=== PATIENT | male | born 1985 | race Caucasian/White ===

== ENCOUNTER 2016-04-01 14:58 | Outpatient (RCR) | payer MEDICAID ==
[~2016-04-01 14:58] MED LIST: /CLON1TA OR
== END 2016-04-05 | disposition home or self-care (01) ==
LOC: M OUTALCOH 14:58
PROVIDERS: ATTEND Psychiatry & Neurology Psychiatry
DX: F10.20 Alcohol dependence, uncomplicated (principal); F12.20 Cannabis dependence, uncomplicated; F11.20 Opioid dependence, uncomplicated; F17.200 Nicotine dependence, unspecified, uncomplicated

== ENCOUNTER 2016-04-29 14:00 | Outpatient (RCR) | payer MEDICAID | END 2016-05-03 | LOC: M OUTALCOH 14:00 | PROVIDERS: ATTEND Psychiatry & Neurology Psychiatry | DX: F12.20 Cannabis dependence, uncomplicated (principal); F11.20 Opioid dependence, uncomplicated; F10.20 Alcohol dependence, uncomplicated; F17.200 Nicotine dependence, unspecified, uncomplicated ==

== ENCOUNTER 2016-06-02 16:00 | Outpatient (RCR) | payer MEDICAID | END 2016-06-03 | LOC: M OUTALCOH 16:00 | PROVIDERS: ATTEND Psychiatry & Neurology Psychiatry | DX: F12.20 Cannabis dependence, uncomplicated (principal); F11.20 Opioid dependence, uncomplicated; F10.20 Alcohol dependence, uncomplicated; F17.200 Nicotine dependence, unspecified, uncomplicated ==

== ENCOUNTER 2016-06-23 13:00 | Outpatient (RCR) | payer MEDICAID | END 2016-07-03 | LOC: M OUTALCOH 13:00 | PROVIDERS: ATTEND Psychiatry & Neurology Psychiatry | DX: F10.20 Alcohol dependence, uncomplicated (principal); F12.20 Cannabis dependence, uncomplicated; F11.20 Opioid dependence, uncomplicated; F17.210 Nicotine dependence, cigarettes, uncomplicated ==

== ENCOUNTER 2018-08-25 12:17 | Emergency (ER) | payer MEDICAID, OTHER ==
[~2018-08-25] VITALS: Ht 180.3 cm; Wt 63.8 kg
[~2018-08-25 12:17] MED LIST changes: -/CLON1TA OR; +CLON-412 OR
[2018-08-25] MEDS ORDERED: EMLA CREAM 5GM (LIDOCAINE/PRILOCAINE) TOP ONE (13:30)
[2018-08-25 14:01] VITALS: BP 143/90
== END 2018-08-25 14:03 | disposition home or self-care (01) ==
LOC: M ED 12:17
DX: S01.01XA Laceration without foreign body of scalp, initial encounter (principal); W22.8XXA Striking against or struck by other objects, initial encounter; Y92.830 Public park as the place of occurrence of the external cause

== ENCOUNTER 2018-09-08 15:17 | Emergency (ER) | payer OTHER ==
[~2018-09-08] VITALS: Ht 180.3 cm; Wt 65.9 kg
[2018-09-08 15:18] VITALS: BP 145/87
== END 2018-09-08 15:54 | disposition home or self-care (01) ==
LOC: M ED 15:51
DX: Z48.02 Encounter for removal of sutures (principal); Z88.0 Allergy status to penicillin

== ENCOUNTER 2018-12-11 04:33 | Emergency (ER) | payer OTHER, SELFPAY ==
[~2018-12-11] VITALS: Ht 180.3 cm; Wt 65.9 kg
--- NOTE | 2018-12-11 05:52 | REPVR ---
PROCEDURE INFORMATION: Exam: CT Head Without Contrast Exam date and time: 12/11/2018 5:18 AM Clinical history: 33 years old, male; Injury or trauma; Fall; Initial encounter; Concussion / head injury and laceration; Without residual foreign body; Scalp; Injury details: Posterior; Additional info: Tr TECHNIQUE: Imaging protocol: Computed tomography of the head without contrast. Radiation optimization: All CT scans at this facility use at least one of these dose optimization techniques: automated exposure control; mA and/or kV adjustment per patient size (includes targeted exams where dose is matched to clinical indication); or iterative reconstruction. COMPARISON: No relevant prior studies available. FINDINGS: Brain: Normal. No hemorrhage. Unremarkable white matter. No mass effect. Ventricles: Normal. No ventriculomegaly. Bones/joints: Unremarkable. No acute fracture. Sinuses: Visualized sinuses are unremarkable. No fluid levels. Mastoid air cells: Visualized mastoid air cells are well aerated. Soft tissues: Unremarkable. IMPRESSION: No acute intracranial abnormality. Electronically signed by: Nam Mccoy On 12/11/2018 05:51:50 AM
[2018-12-11 06:00] VITALS: BP 142/74
== END 2018-12-11 06:04 | disposition home or self-care (01) ==
LOC: M ED 04:33
DX: S01.01XA Laceration without foreign body of scalp, initial encounter (principal); W01.0XXA Fall on same level from slipping, tripping and stumbling without subsequent striking against object, initial encounter; Y93.02 Activity, running; Y92.410 Unspecified street and highway as the place of occurrence of the external cause; Z88.0 Allergy status to penicillin

== ENCOUNTER 2019-02-28 20:00 | Inpatient (IN) | payer SELFPAY ==
[~2019-02-28] VITALS: Ht 180.3 cm; Wt 65.3 kg
--- NOTE | 2019-02-28 20:49 | REPVR ---
PROCEDURE INFORMATION: Exam: US Scrotum and US Duplex Artery and Vein, Scrotum, Complete Exam date and time: 02/28/2019 8:38 PM Age: 33 years old Clinical indication: Scrotum pain; Additional info: Bilateral testicular swelling TECHNIQUE: Imaging protocol: Real-time ultrasound of the scrotum. Real-time duplex ultrasound scan of the arterial and venous flow of the scrotum with B-mode, color Doppler flow and spectral waveform analysis. Complete exam. Duplex images required to evaluate vascular conditions. COMPARISON: No relevant prior studies available. FINDINGS: Right testicle: Right testis measures 4.3 x 2.5 x 2.9 cm. Normal echogenicity. Normal arterial waveforms on duplex color spectral Doppler analysis. Left testicle: Left testis measures 3.8 x 1.9 x 3 cm. Normal echogenicity. Normal arterial waveforms on duplex color spectral Doppler analysis. Epididymides: Generalized hyperemia involving both epididymides. Scrotum: Small right-sided hydrocele. IMPRESSION: 1. Findings concerning for possible bilateral epididymitis. 2. Small right hydrocele. 3. No evidence of testicular torsion. Electronically signed by: Andrea Geronimo On 02/28/2019 20:49:24 PM
[2019-02-28 22:06] LABS: HEMATOCRIT 46.7 % (42.0-52.0); HEMOGLOBIN 15.1 g/dl (13.5-17.5); MEAN CORPUSCULAR HEMOGLOBIN 29.5 pg (27.0-33.0); MEAN CORPUSCULAR HGB CONC 32.3 g/dl (32.0-36.5); MEAN CORPUSCULAR VOLUME 91.2 fl (80.0-96.0); PLATELET COUNT, AUTOMATED 248 10^3/uL (150-450); RED BLOOD COUNT 5.12 10^6/uL (4.30-6.10); WHITE BLOOD COUNT 17.6 10^3/uL (4.0-10.0)
[2019-02-28 22:19] LABS: CHLAMYDIA DNA AMPLIFICATION POSITIVE (NEGATIVE); GC DNA AMPLIFICATION POSITIVE (NEGATIVE)
[2019-02-28] MEDS ORDERED: DOXYCYCLINE HYCLATE 100 MG TAB PO ONE (23:30)
[2019-02-28] MEDS ORDERED: AZITHROMYCIN 250 MG TAB PO ONE (23:30)
[2019-03-01 00:03] LABS: ALBUMIN 3.6 GM/DL (3.2-5.2); ALT/SGPT 350 U/L (12-78); BILIRUBIN,DIRECT 0.2 MG/DL (0.0-0.2); BILIRUBIN,TOTAL 0.9 MG/DL (0.2-1.0); BLOOD UREA NITROGEN 10 MG/DL (7-18); CALCIUM LEVEL 9.1 MG/DL (8.5-10.1); CARBON DIOXIDE LEVEL 30 MEQ/L (21-32); CHLORIDE LEVEL 96 MEQ/L (98-107); CREATININE FOR GFR 0.86 MG/DL (0.70-1.30); GLOMERULAR FILTRATION RATE > 60.0 (>60); GLUCOSE, FASTING 96 MG/DL (70-100); POTASSIUM SERUM 4.5 MEQ/L (3.5-5.1); SODIUM LEVEL 132 MEQ/L (136-145); TOTAL PROTEIN 8.3 GM/DL (6.4-8.2)
[2019-03-01] MEDS ORDERED: CLOTRIMAZOLE 1% TOPICAL CREAM 30GM TOP ONE (00:30)
[2019-03-01] MEDS ORDERED: SUBO8MIS SL (01:03)
[2019-03-01] MEDS ORDERED: cefTRIAXone SOD 250 MG VIAL (J0696) IM ONE (01:45)
[2019-03-01] MEDS ORDERED: IBUPROFEN 800 MG TAB PO PRN (01:45)
[2019-03-01] MEDS ORDERED: NICOTINE 14 MG/24 HR TRANSDERMAL TD PRN (01:45)
[2019-03-01] MEDS ORDERED: LIDOCAINE 1% SDV 5 ML VIAL DILUENT ONE (01:45)
[2019-03-01 02:25] VITALS: BP 159/97
--- NOTE | 2019-03-01 03:53 | HPEPDOC ---
[facility] Medical History & Physical Date of Admission Mar 01, 2019 Date of Service: Mar 01, 2019 Attending Physician: JUANY MAYERS MD History and Physical CHIEF COMPLAINT: Testicular pain and discharge HISTORY OF PRESENT ILLNESS: Patient is a 33 year old male who presented to the [facility] ER with complaint of testicular pain, swelling and discharge for 5 days duration. The patient stated that approximately 5 days ago he noticed clearish white discharge from his penis. He also stated that at the time he had tenderness in his testicles as well as discomfort on urination. At the time he ignored it however, the discharge continued and the pain got worse. Yesterday and into today he noticed swelling in his testicles as well as worsening pain. He states that he was sexually active about 1-2 weeks ago. He normally has 2-3 sexual partners a week and does not consistently use condoms. He states that he only has sex with women and denies any ano-insertive or anoreceptive intercourse. He admits to IV drug use and states that he injects every drug. He is currently on Suboxone and therefore tries to avoid opioids. His last IV drug use was a day ago and was IV crack/cocaine. He does admit to sharing needles. The patient presented to the ER because he was having worsening pain and testicular swelling. In the ER the patient was found to be afebrile, hypertensive, and slightly tachycardic. He had elevation of his WBC and transaminitis. The patient received an U/S of the scrotum which demonstrated small right hydrocele and possible bilateral epididymitis. There was no evidence of testicular torsion. The patient the received an STD panel which resulted positive for gonorrhoeae and chlamydia. Hospitalist service was consulted and the patient was admitted for further evaluation and management PAST MEDICAL HISTORY: 1. Current IV drug use 2. Opioid Dependence on Suboxone PAST SURGICAL HISTORY: None SOCIAL HISTORY: Patient currently lives on his home. He works in [employer]. He smokes about 1/2 ppd. He denies any alcohol use. He is a current IV drug user. He states that he uses every drug. Recently he has started suboxone and hasn't been injecting opioids. He last used 1-2 days ago and injected cocaine. He states that he does share needles. He is sexually active with women only. He has 2-3 sexual partners per week and inconsistently uses condoms. FAMILY HISTORY: Patient does not know any family history ALLERGIES: Please see below. REVIEW OF SYSTEMS: CONSTITUTIONAL: Denies fevers. Denies chills. Denies unintentional weightloss. Denies night sweats HEENT: Denies headache. Denies dysphagia. Denies lymphadenopathy. Denies sore throat CARDIOVASCULAR: Denies chest pain, palpitations or feelings of the heart racing RESPIRATORY: Denies shortness of breath. Denies wheezing. Denies cough GASTROINTESTINAL: Admits to abdominal/suprapubic pain. Denies diarrhea or constipation. Admits to nausea but denies vomiting GENITOURINARY: Admits to dysuria. Admits to penile discharge. Admits to pain in his testicles and testicular swelling. SKIN: Denies any rashes or lesions MUSCULOSKELETAL: Denies any muscle weakness NEUROLOGICAL: Denies changes in speech or gait PSYCHIATRIC: Denies depression or anxiety ENDOCRINE: Denies heat intolerance or cold intolerance HEMATOLOGIC/LYMPHATIC: Denies history of easy bruising or bleeding. Denies history of DVT or PE HOME MEDICATIONS: Please see below. PHYSICAL EXAMINATION: VITAL SIGNS: Temperature 97.7, pulse 103, respiratory rate 20, blood pressure 159/97, pulse oximetry 100% on room air. GENERAL APPEARANCE: Patient is awake, alert, and oriented. He does not appear in any acute distress. He appears uncomfortable HEENT: Atraumatic, normocephalic. Eyes are nonicteric. Trachea is midline. Dentition is fair. There is no cervical, supraclavicular, or axillary lymphadenopathy CARDIOVASCULAR: Normal S1, S2. Tachycardic. Regular rhythm. No clicks, rubs, or murmurs LUNGS: Clear vesicular breath sounds bilaterally with good respiratory effort. No wheezes, rhonchi, or rales ABDOMEN: Soft, nondistended. Slight suprapubic tenderness. No rebound tenderness or guarding. Normoactive bowel sounds throughout GENITOURINARY: Bilateral testicular swelling with tenderness. No ulcerations or blistering visible on penis or groin. No palpable inguinal lymphadenopathy. RECTAL: Patient deferred rectal exam EXTREMITIES: No edema. Full and equal pulses in bilateral upper and lower extremities NEUROLOGICAL: No focal neurological deficits PSYCHIATRIC: Mood and affect appear appropriate for situation LABORATORY DATA: See below. IMAGING: PROCEDURE INFORMATION: Exam: US Scrotum and US Duplex Artery and Vein, Scrotum, Complete Exam date and time: 02/28/2019 8:38 PM Age: 33 years old Clinical indication: Scrotum pain; Additional info: Bilateral testicular swelling TECHNIQUE: Imaging protocol: Real-time ultrasound of the scrotum. Real-time duplex ultrasound scan of the arterial and venous flow of the scrotum with B-mode, color Doppler flow and spectral waveform analysis. Complete exam. Duplex images required to evaluate vascular conditions. COMPARISON: No relevant prior studies available. FINDINGS: Right testicle: Right testis measures 4.3 x 2.5 x 2.9 cm. Normal echogenicity. Normal arterial waveforms on duplex color spectral Doppler analysis. Left testicle: Left testis measures 3.8 x 1.9 x 3 cm. Normal echogenicity. Normal arterial waveforms on duplex color spectral Doppler analysis. Epididymides: Generalized hyperemia involving both epididymides. Scrotum: Small right-sided hydrocele. IMPRESSION: 1. Findings concerning for possible bilateral epididymitis. 2. Small right hydrocele. 3. No evidence of testicular torsion. Electronically signed by: Andrea Geronimo On 02/28/2019 20:49:24 PM MICROBIOLOGY: Please see below. ASSESSMENT: Patient is a 33 year old male with a history of IV drug abuse and high risk sexual behavior who presented to the [facility] ER with complaint of dysuria, penile discharge, testicular swelling and pain and found to be positive for GC . PLAN: 1. Epididymitis 2/2 GC infection -Patient participates in high risk sexual behavior. He has contracted gonorrhoeae and chlamydia resulting in bilateral epididymitis. -IM ceftriaxone 250mg -Oral Doxycycline 100 mg BID for 10 days -Given current STD, will obtain full STD panel including syphilis, HIV, and Trichomonas -Ibuprofen for pain -Will avoid opioid medications for pain given patients IV drug use 2. Transaminitis -Patient has elevated transaminases. He is an IV drug user. This is likely secondary to Hepatitis C infection. Will obtain Hep A, Hep B, and Hep C serology -Will trend transaminases. 3. History of IV drug use -Patient has a history of IV drug use. HIV, Hepatitis panel currently pending 4. Tobacco Abuse -Patient smokes 1/2 PPD. Will give Nicotine patch 14mg/24h prn 5. DVT prophylaxis -Teds and sequentials Vital Signs Vital Signs Date Time Temp Pulse Resp B/P (MAP) Pulse Ox O2 Delivery O2 Flow Rate FiO2 03/01/19 02:25 97.7 103 20 159/97 (117) 100 Room Air Laboratory Data Labs 24H Laboratory Tests 2 02/28/19 20:27: Urine Color YELLOW, Urine Appearance CLOUDYH, Urine pH 8.0, Urine Specific [place] 1.010, Urine Protein 2+H, Urine Glucose (UA) NEGATIVE, Urine Ketones NEGATIVE, Urine Blood 2+H, Urine Nitrite NEGATIVE, Urine Bilirubin NEGATIVE, Urine Urobilinogen 0.2, Urine Leukocyte Esterase 3+H, Urine WBC (Auto) TNTCH, Urine RBC (Auto) 106H, Urine Hyaline Casts (Auto) 0, Urine Bacteria (Auto) NEGATIVE, Urine Squamous Epithelial Cells 2, Urine Transitional Epithelial Cells 2, Urine Sperm (Auto) , Chlamydia trachomatis DNA (BECCA) POSITIVEH, Neisseria gonorrhoeae DNA (BECCA) POSITIVEH, Trichomonas vaginalis (PCR) NOT DETECTED 02/28/19 21:50: Nucleated Red Blood Cells % (auto) 0.0, Anion Gap 6L, Glomerular Filtration Rate > 60.0, Calcium Level 9.1, Total Bilirubin 0.9, Direct Bilirubin 0.2, Aspartate Amino Transf (AST/SGOT) 142H, Alanine Aminotransferase (ALT/SGPT) 350H, Alkaline Phosphatase 134H, Total Protein 8.3H, Albumin 3.6, Albumin/Globulin Ratio 0.77L CBC/BMP Laboratory Tests 02/28/19 21:50 Microbiology Microbiology 02/28/19 Urine Culture, Received Pending Home Medications Scheduled Buprenorphine HCl/Naloxone HCl (Suboxone 8 mg-2 mg Sl Film) 1 Each Film, 1.5 STRIP SL DAILY Allergies Coded Allergies: Penicillins (Verified Allergy, Severe, ANAPHYLAXIS, 08/25/18) A-FIB/CHADSVASC A-FIB History Current/History of A-Fib/PAF?: No MARIMAR FOUNTAIN DO Mar 01, 2019 03:53
[2019-03-01 06:00] VITALS: BP 135/83
[2019-03-01] MEDS ORDERED: BUPRENORPHINE/NALOXONE 8-2MG SUBLINGUAL TABLET(SUBOXONE) SL SCH (07:30)
[2019-03-01] MEDS ORDERED: DOXYCYCLINE HYCLATE 100 MG TAB PO SCH (09:00)
[2019-03-01 10:39] LABS: HEPATITIS B SURFACE ANTIGEN NEGATIVE (NEGATIVE)
--- NOTE | 2019-03-01 10:39 | IPNPDOC ---
Text Note Date of Service The patient was seen on 03/01/19. NOTE SUBJECTIVE Today is hospital day 2. Pt continues to complain of testicular pain and tenderness. Pt no longer has penile discharge. Pt denies dysuria and hematuria. Pt has no other complaints at this time. OBJECTIVE VITAL SIGNS: Please see below. GENERAL APPEARANCE: Patient appears tired, but stated age and is lying comfortably in bed in no acute distress. HEENT: Atraumatic, normocephalic. Eyes are nonicteric. Trachea is midline. Dentition is fair. CARDIOVASCULAR: Regular rate & rhythm. Normal S1, S2. No murmurs, rubs, or gallops. LUNGS: Clear to auscultation b/l. No wheezes, rales, or rhonchi. ABDOMEN: No rashes, bumps, or bruises. Bowel sounds present in all 4 quadrants. Abdomen is soft and nondistended. No organomegaly. Suprapubic tenderness present; no abdominal tenderness in any other area. No rebound tenderness or guarding. GENITOURINARY: No groin or penile erythema or lesions. Testicular swelling b/l with tenderness and overlying erythema. No palpable inguinal lymphadenopathy. RECTAL: Patient deferred rectal exam. EXTREMITIES: No edema. Full and equal pulses in bilateral upper and lower extremities. NEUROLOGICAL: Pt moves all 4 extremities spontaneously. PSYCHIATRIC: Pt is alert & oriented x4. Full affect, calm, cooperative. Pt answers questions appropriately. LABORATORY DATA: Please see below. ASSESSMENT: Patient is a 33-year-old male with a history of IV drug abuse and high risk sexual behavior who presented to the [facility] emergency department complaining of dysuria, penile discharge, testicular swelling and pain. He tested positive for gonorrhea and chlamydia, was diagnosed with secondary epididymitis, and was admitted for treatment. PLAN: 1. Epididymitis secondary to concurrent gonorrhea and chlamydia infections -IM ceftriaxone 250mg given yesterday. Oral Doxycycline 100 mg BID for 10 days started yesterday; today is day 04/15. -Negative tests: Trichomonas vaginalis, syphilis serology, HIV ag/ab, hepatitis A IgM, hepatitis B surface antigen & core IgM. -Hepatitis C serology still pending. -Ibuprofen for pain; avoid opioids for pain given current suboxone treatment. 2. Elevated transaminase -Suspected hepatitis C infection. Hepatitis C serology pending. -Trending transaminases. 3. High risk sexual behavior -STI prevention counseling. -STI testing (see above). 4. IV drug use disorder -Restart Suboxone treatment. 5. Tobacco use disorder -Patient smokes 1/2 pack/day. Continue nicotine patch 14mg/24h PRN. 5. DVT prophylaxis -TEDs and sequentials. DISPOSITION: Discharge with outpatient follow-up and completion of oral antibiotics pending workup of elevated transaminases. VS,Fishbone, I+O VS, Fishbone, I+O Laboratory Tests 02/28/19 21:50 Vital Signs Date Time Temp Pulse Resp B/P (MAP) Pulse Ox O2 Delivery O2 Flow Rate FiO2 03/01/19 06:00 97.8 101 19 135/83 (100) 98 Room Air I&O- Last 24 Hours up to 6 AM 03/01/19 06:00 Intake Total 80 ml Output Total 0 ml Balance 80 ml [facility] ATTESTATION [facility] ATTESTATION My faculty preceptor for this patient encounter was physically present during the encounter and was fully available. All aspects of the patient interview, examination, medical decision making process, and medical care plan development were reviewed and approved by the faculty preceptor. The faculty preceptor is aware and concurs with the plan as stated in the body of this note and will attest to such by his/her cosignature. ATTENDING NOTE I have personally evaluated and examined the patient. Discussed with resident/st arriola regarding plan of care and agree with the above assessment and plan. REID HO OMS-III Mar 01, 2019 10:38 BERT HOU MD Mar 01, 2019 15:06
[2019-03-01 10:57] LABS: HIV 1&2 SCREEN CENTAUR NEGATIVE (NEGATIVE)
[2019-03-01 11:21] LABS: HEPATITIS A ANTIBODY IGM NEGATIVE (NEGATIVE); HEPATITIS B CORE ANTIBODY IGM NEGATIVE (NEGATIVE)
[2019-03-01 14:00] VITALS: BP 128/67
[2019-03-01 14:12] LABS: HEPATITIS C VIRUS ABY INDEX > 11.0 INDEX (<0.8)
--- NOTE | 2019-03-01 18:19 | DS.PDOC ---
Discharge Summary General Date of Admission Mar 01, 2019 at 01:31 Date of Discharge March 01, 2019 Attending Physician: BERT HOU MD Discharge Summary PROCEDURES PERFORMED DURING STAY: [None]. ADMITTING DIAGNOSES: 1. Epididymitis DISCHARGE DIAGNOSES: 1. Epididymitis Gonococcal infection 2. Hepatitis C infection COMPLICATIONS/CHIEF COMPLAINT: Bilateral Epididymitis. HISTORY OF PRESENT ILLNESS: Patient is a 33 year old male who presented to the [facility] ER with complaint of testicular pain, swelling and discharge for 5 days duration. The patient stated that approximately 5 days ago he noticed clearish white discharge from his penis. He also stated that at the time he had t enderness in his testicles as well as discomfort on urination. At the time he ignored it however, the discharge continued and the pain got worse. Yesterday and into today he noticed swelling in his testicles as well as worsening pain. He states that he was sexually active about 1-2 weeks ago. He normally has 2-3 sexual partners a week and does not consistently use condoms. He states that he only has sex with women and denies any ano-insertive or anoreceptive intercourse. He admits to IV drug use and states that he injects every drug. He is currently on Suboxone and therefore tries to avoid opioids. His last IV drug use was a day ago and was IV crack/cocaine. He does admit to sharing needles. The patient presented to the ER because he was having worsening pain and testicular swelling. In the ER the patient was found to be afebrile, hypertensive, and slightly tachycardic. He had elevation of his WBC and transaminitis. The patient received an U/S of the scrotum which demonstrated small right hydrocele and possible bilateral epididymitis. There was no evidence of testicular torsion. The patient the received an STD panel which resulted positive for gonorrhoeae and chlamydia. Hospitalist service was consulted and the patient was admitted for further evaluation and management HOSPITAL COURSE: Patient was admitted for several days, dysuria, penile discharge, and testicular swelling, found to have gonococcal infection and chlamydia. He was treated with 250 mg intramuscular ceftriaxone and azithromycin. He was also placed on oral doxycycline 100 mg twice a day, but this was later deemed unnecessary. For his transaminitis he underwent further workup including hepatitis screen and HIV screening. He is found to be positive for hepatitis C. On Hospital day 2, the patient continued to complain of testicular pain and tenderness, but no longer had penile discharge. Later in the day, He was able to tolerate foods and reported feeling much better. The patient requested discharge and was sent home without medication changes. Clinical status improved, fevers resolved, vital signs remained stable prior to discharge. DISCHARGE MEDICATIONS: Please see below. ALLERGIES: Please see below. PHYSICAL EXAMINATION ON DISCHARGE: VITAL SIGNS: Please see below. GENERAL APPEARANCE: Patient appears tired, but stated age and is lying comfortably in bed in no acute distress. HEENT: Atraumatic, normocephalic. Eyes are nonicteric. Trachea is midline. Dentition is fair. CARDIOVASCULAR: Regular rate & rhythm. Normal S1, S2. No murmurs, rubs, or gallops. LUNGS: Clear to auscultation b/l. No wheezes, rales, or rhonchi. ABDOMEN: No rashes, bumps, or bruises. Bowel sounds present in all 4 quadrants. Abdomen is soft and nondistended. No organomegaly. Suprapubic tenderness present; no abdominal tenderness in any other area. No rebound tenderness or guarding. GENITOURINARY: No groin or penile erythema or lesions. Testicular swelling b/l with tenderness and overlying erythema. No palpable inguinal lymphadenopathy. RECTAL: Patient deferred rectal exam. EXTREMITIES: No edema. Full and equal pulses in bilateral upper and lower extremities. NEUROLOGICAL: Pt moves all 4 extremities spontaneously. PSYCHIATRIC: Pt is alert & oriented x4. Full affect, calm, cooperative. Pt answers questions appropriately. LABORATORY DATA: Please see below. IMAGING: SCROTUM ULTRASOUND: FINDINGS: Right testicle: Right testis measures 4.3 x 2.5 x 2.9 cm. Normal echogenicity. Normal arterial waveforms on duplex color spectral Doppler analysis. Left testicle: Left testis measures 3.8 x 1.9 x 3 cm. Normal echogenicity. Normal arterial waveforms on duplex color spectral Doppler analysis. Epididymides: Generalized hyperemia involving both epididymides. Scrotum: Small right-sided hydrocele. IMPRESSION: 1. Findings concerning for possible bilateral epididymitis. 2. Small right hydrocele. 3. No evidence of testicular torsion. PROGNOSIS: Fair ACTIVITY: [As tolerated]. DIET: As tolerated DISCHARGE PLAN: Home, with plan to establish with PCP in [facility] f/u with PCP regarding + Hep C antibody DISPOSITION: home. DISCHARGE INSTRUCTIONS: 1. Please call [facility] to set up appointment with new PCP ITEMS TO FOLLOWUP ON ON OUTPATIENT: 1. Hep C viral RNA DISCHARGE CONDITION: [Stable]. TIME SPENT ON DISCHARGE: 32 minutes. Vital Signs/I&Os Vital Signs Date Time Temp Pulse Resp B/P (MAP) Pulse Ox O2 Delivery O2 Flow Rate FiO2 03/01/19 14:00 97.8 109 18 128/67 (87) 99 Room Air I&O- Last 24 Hours up to 6 AM0 03/01/19 06:00 Intake Total 80 ml Output Total 0 ml Balance 80 ml Laboratory Data Labs 24H Laboratory Tests 2 02/28/19 20:27: Urine Color YELLOW, Urine Appearance CLOUDYH, Urine pH 8.0, Urine Specific [place] 1.010, Urine Protein 2+H, Urine Glucose (UA) NEGATIVE, Urine Ketones NEGATIVE, Urine Blood 2+H, Urine Nitrite NEGATIVE, Urine Bilirubin NEGATIVE, Urine Urobilinogen 0.2, Urine Leukocyte Esterase 3+H, Urine WBC (Auto) TNTCH, Urine RBC (Auto) 106H, Urine Hyaline Casts (Auto) 0, Urine Bacteria (Auto) NEGATIVE, Urine Squamous Epithelial Cells 2, Urine Transitional Epithelial Cells 2, Urine Sperm (Auto) , Chlamydia trachomatis DNA (BECCA) POSITIVEH, Neisseria gonorrhoeae DNA (BECCA) POSITIVEH, Trichomonas vaginalis (PCR) NOT DETECTED 02/28/19 21:50: Nucleated Red Blood Cells % (auto) 0.0, Anion Gap 6L, Glomerular Filtration Rate > 60.0, Calcium Level 9.1, Total Bilirubin 0.9, Direct Bilirubin 0.2, Aspartate Amino Transf (AST/SGOT) 142H, Alanine Aminotransferase (ALT/SGPT) 350H, Alkaline Phosphatase 134H, Total Protein 8.3H, Albumin 3.6, Albumin/Globulin Ratio 0.77L, Syphilis Serology NONREACTIVE, Hepatitis A IgM Antibody NEGATIVE, Hepatitis B Surface Antigen NEGATIVE, Hepatitis B Core IgM Antibody NEGATIVE, Hepatitis C Antibody Index > 11.0H, HIV Antigen/Antibody Combo Qual NEGATIVE CBC/BMP Laboratory Tests 02/28/19 21:50 Microbiology Microbiology 02/28/19 Urine Culture, Received Pending Discharge Medications Scheduled Buprenorphine HCl/Naloxone HCl (Suboxone 8 mg-2 mg Sl Film) 1 Each Film, 1.5 STRIP SL DAILY, (Reported) Allergies Coded Allergies: Penicillins (Verified Allergy, Severe, ANAPHYLAXIS, 08/25/18) [facility] ATTESTATION GME ATTESTATION My faculty preceptor for this patient encounter was physically present during the encounter and was fully available. All aspects of the patient interview, examination, medical decision making process, and medical care plan development were reviewed and approved by the faculty preceptor. The faculty preceptor is aware and concurs with the plan as stated in the body of this note and will attest to such by his/her cosignature. ATTENDING NOTE I have personally evaluated and examined the patient. Discussed with resident/student regarding plan of care and agree with the above assessment and plan. JACQUELYN BENTLEY MD Mar 01, 2019 18:19 BERT HOU MD Mar 02, 2019 07:33
== END 2019-03-01 17:56 | disposition home or self-care (01) | DRG 501 ==
LOC: M ED 20:00 → M ED INP 03-01 01:31 → M MS5PR 03-01 02:25
PROVIDERS: ADMIT Internal Medicine; ATTEND Internal Medicine
DX: A54.23 Gonococcal infection of other male genital organs (principal); B18.2 Chronic viral hepatitis C; F17.200 Nicotine dependence, unspecified, uncomplicated; Z88.0 Allergy status to penicillin; Z72.51 High risk heterosexual behavior

== ENCOUNTER 2019-04-18 11:54 | Emergency (ER) | payer SELFPAY ==
[~2019-04-18] VITALS: Ht 180.3 cm; Wt 67.7 kg
[~2019-04-18 11:54] MED LIST changes: +SUBO8MIS SL
[2019-04-18 11:55] VITALS: BP 130/79
[2019-04-18] MEDS ORDERED: LIDOCAINE 1% SDV 5 ML VIAL DILUENT ONE (14:45)
[2019-04-18] MEDS ORDERED: cefTRIAXone SOD 250 MG VIAL (J0696) IM ONE (14:45)
[2019-04-18 16:21] LABS: CHLAMYDIA DNA AMPLIFICATION NEGATIVE (NEGATIVE); GC DNA AMPLIFICATION NEGATIVE (NEGATIVE)
== END 2019-04-18 15:21 | disposition home or self-care (01) ==
LOC: M ED 11:54
DX: Z20.2 Contact with and (suspected) exposure to infections with a predominantly sexual mode of transmission (principal); B19.20 Unspecified viral hepatitis C without hepatic coma; Z88.0 Allergy status to penicillin; Z79.890 Hormone replacement therapy; F17.210 Nicotine dependence, cigarettes, uncomplicated; F19.10 Other psychoactive substance abuse, uncomplicated
CPT/HCPCS: 87491; 87591; 96372; 99283; J0696

== ENCOUNTER 2019-10-09 06:43 | Inpatient (IN) | payer SELFPAY ==
[2019-10-09] MEDS ORDERED: LIDOCAINE 1% MDV 20ML VIAL As Ordered ONE (07:20)
[2019-10-09] MEDS ORDERED: LIDOCAINE 1% MDV 20ML VIAL ONE (07:20)
[2019-10-09] MEDS ORDERED: VANCOMYCIN 1000MG/20ML VIAL ONE (07:20)
[2019-10-09] MEDS ORDERED: VANCOMYCIN 1000MG/20ML VIAL As Ordered ONE (07:50)
[2019-10-09] MEDS ORDERED: CLINDAMYCIN 600 MG/50 ML PREMIX BAG As Ordered ONE (08:20)
[2019-10-09] MEDS ORDERED: CLINDAMYCIN 600 MG/50 ML PREMIX BAG ONE (08:20)
[2019-10-09] MEDS ORDERED: ACETAMINOPHEN TAB 650MG DOSE (2X325MG) As Ordered ONE (15:26)
[2019-10-09] MEDS ORDERED: ENOXAPARIN 40MG/0.4ML SYRINGE (J1650 PER 10MG) ONE (15:26)
[2019-10-09] MEDS ORDERED: ACETAMINOPHEN TAB 650MG DOSE (2X325MG) ONE (15:26)
[2019-10-09] MEDS ORDERED: NICOTINE 14 MG/24 HR TRANSDERMAL ONE (15:26)
[2019-10-09] MEDS ORDERED: ENOXAPARIN 40MG/0.4ML SYRINGE (J1650 PER 10MG) As Ordered ONE (15:26)
[2019-10-09] MEDS ORDERED: NICOTINE 14 MG/24 HR TRANSDERMAL As Ordered ONE (15:26)
[2019-10-09] MEDS ORDERED: CEFTAROLINE FOSAMIL 600 MG VIAL (TEFLARO) (J0712 PER 10MG) As Ordered ONE (18:02)
[2019-10-09] MEDS ORDERED: CEFTAROLINE FOSAMIL 600 MG VIAL (TEFLARO) (J0712 PER 10MG) ONE (18:02)
[2019-10-10] MEDS ORDERED: CEFTAROLINE FOSAMIL 600 MG VIAL (TEFLARO) (J0712 PER 10MG) As Ordered ONE ×2 (05:22→17:29)
[2019-10-10] MEDS ORDERED: CEFTAROLINE FOSAMIL 600 MG VIAL (TEFLARO) (J0712 PER 10MG) ONE ×2 (05:22→17:29)
[2019-10-10] MEDS ORDERED: BUPRENORPHINE/NALOXONE 8-2MG SUBLINGUAL TABLET(SUBOXONE) As Ordered ONE (09:18)
[2019-10-10] MEDS ORDERED: ENOXAPARIN 40MG/0.4ML SYRINGE (J1650 PER 10MG) As Ordered ONE (09:18)
[2019-10-10] MEDS ORDERED: NICOTINE 14 MG/24 HR TRANSDERMAL As Ordered ONE (09:18)
[2019-10-10] MEDS ORDERED: NICOTINE 14 MG/24 HR TRANSDERMAL ONE (09:18)
[2019-10-10] MEDS ORDERED: ENOXAPARIN 40MG/0.4ML SYRINGE (J1650 PER 10MG) ONE (09:18)
[2019-10-11] MEDS ORDERED: ACETAMINOPHEN 325 MG TAB ONE ×2 (01:58→15:57)
[2019-10-11] MEDS ORDERED: ACETAMINOPHEN 325 MG TAB As Ordered ONE ×2 (01:58→15:57)
[2019-10-11] MEDS ORDERED: BUPRENORPHINE/NALOXONE 8-2MG SUBLINGUAL TABLET(SUBOXONE) ONE (05:38)
[2019-10-11] MEDS ORDERED: CEFTAROLINE FOSAMIL 600 MG VIAL (TEFLARO) (J0712 PER 10MG) ONE ×2 (05:38→17:18)
[2019-10-11] MEDS ORDERED: CEFTAROLINE FOSAMIL 600 MG VIAL (TEFLARO) (J0712 PER 10MG) As Ordered ONE ×2 (05:38→17:18)
[2019-10-11] MEDS ORDERED: BUPRENORPHINE/NALOXONE 8-2MG SUBLINGUAL TABLET(SUBOXONE) As Ordered ONE (05:39)
[2019-10-11] MEDS ORDERED: NICOTINE 14 MG/24 HR TRANSDERMAL As Ordered ONE (07:53)
[2019-10-11] MEDS ORDERED: NICOTINE 14 MG/24 HR TRANSDERMAL ONE (07:53)
[2019-10-11] MEDS ORDERED: ALPRAZolam 0.25 MG TAB As Ordered ONE ×4 (07:53→20:00)
[2019-10-11] MEDS ORDERED: ALPRAZolam 0.25 MG TAB ONE ×4 (07:53→19:58)
[2019-10-11] MEDS ORDERED: ENOXAPARIN 40MG/0.4ML SYRINGE (J1650 PER 10MG) As Ordered ONE (07:53)
[2019-10-11] MEDS ORDERED: ONDANSETRON 4 MG TAB ONE (19:58)
[2019-10-11] MEDS ORDERED: ONDANSETRON 4 MG TAB As Ordered ONE (19:58)
[2019-10-11] MEDS ORDERED: zolPIDEM TARTRATE 5 MG TAB As Ordered ONE (21:23)
[2019-10-11] MEDS ORDERED: zolPIDEM TARTRATE 5 MG TAB ONE (21:23)
--- NOTE | 2019-11-08 14:00 | CR ---
DATE: 10/11/2019 CONSULTING PHYSICIAN: Dr. Saha REASON FOR CONSULTATION: Recommendations for wound care. HISTORY OF PRESENT ILLNESS: Mr. Acharya is currently admitted in the hospital. He has a history of right leg abscess specifically from shooting heroin. The abscess was drained in the emergency room, appears to be on October 09, 2019. Currently, they have been putting Iodoform packing to it and I was asked to look at the wound and recommend further wound management. PHYSICAL EXAMINATION: On examination, the dressings were removed. He still has some wide area of cellulitis over the right lower leg area. There is no evidence of any deep soft tissue infection. There is about a 2 x 1 cm wound opening from the drainage at the medial side of the leg. The wound itself does not appear deep. The packing is actually out of the wound. No further purulent drainage that I could appreciate. Comparing the right and the left leg does not appear to be overly swollen. IMPRESSION: Right lower leg cellulitis with abscess, status post irrigation and debridement. PLANS: I do not think it needs any further packing. Just clean the wound with soap and water and place dry sterile dressing on it and change every day. I will leave the antibiotic regimen to the hospitalist service. I do not think he needs follow up in our clinic. I think this will just heal up fine. MELONY
[2019-11-27 20:38] LABS: HEMOGLOBIN 13.5 g/dl (13.5-17.5); MEAN CORPUSCULAR HGB CONC 33.8 g/dl (32.0-36.5); PLATELET COUNT, AUTOMATED 256 10^3/uL (150-450); RED BLOOD COUNT 4.65 10^6/uL (4.30-6.10); WHITE BLOOD COUNT 9.2 10^3/uL (4.0-10.0)
[2019-11-28 03:24] LABS: INR 1.12; PARTIAL THROMBOPLASTIN TIME 38.8 SECONDS (24.2-38.5); PROTHROMBIN TIME 14.7 SECONDS (12.5-14.3)
[2019-11-28 03:34] LABS: BASO % 0.3 % (0.0-1.0); EOS # 0.2 10^3/uL (0.0-0.5); EOS % 1.4 % (0.0-3.0); HEMATOCRIT 41.9 % (42.0-52.0); LYMPH # 2.1 10^3/uL (1.5-5.0); LYMPH % 17.3 % (24.0-44.0); MEAN CORPUSCULAR HEMOGLOBIN 29.6 pg (27.0-33.0); MEAN CORPUSCULAR HGB CONC 33.4 g/dl (32.0-36.5); MEAN CORPUSCULAR VOLUME 88.6 fl (80.0-96.0); MONO # 1.2 10^3/uL (0.0-0.8); NEUTROPHILS # 8.5 10^3/uL (1.5-8.5); NEUTROPHILS % 70.7 % (36.0-66.0); PLATELET COUNT, AUTOMATED 229 10^3/uL (150-450); RED BLOOD COUNT 4.73 10^6/uL (4.30-6.10); WHITE BLOOD COUNT 11.9 10^3/uL (4.0-10.0)
[2019-11-28 03:45] LABS: ERYTHROCYTE SEDIMENTATION RATE 34 mm/hr (0-15)
--- NOTE | 2019-11-28 10:28 | ECGEPIP ---
[facility] Test Date: 2019-10-11 Pat Name: DANILO NOVOA Department: Room: [place] [address] Gender: Male [employer] Operator: NAREN : 1985 Requested By: RONEY ALLISON Order Number: [id number] Reading MD: Ye Messina Measurements Intervals [place] Rate: 70 P: 73 NC: 133 QRS: 94 QRSD: 105 T: 13 QT: 359 QTc: 387 Interpretive Statements NORMAL SINUS RHYTHM VERTICAL AXIS NONSPECIFIC T-WAVE ABNORMALITY COMPARISON TRACING N/A SEE SCANNED DOWNTIME REPORT
[2019-12-07 11:09] LABS: BASO % 0.2 % (0.0-1.0); EOS # 0.2 10^3/uL (0.0-0.5); EOS % 2.4 % (0.0-3.0); HEMATOCRIT 39.9 % (42.0-52.0); LYMPH # 2.3 10^3/uL (1.5-5.0); LYMPH % 27.4 % (24.0-44.0); MEAN CORPUSCULAR HGB CONC 32.6 g/dl (32.0-36.5); MEAN CORPUSCULAR VOLUME 88.9 fl (80.0-96.0); MONO # 0.7 10^3/uL (0.0-0.8); MONO % 8.9 % (0.0-5.0); NEUTROPHILS # 5.1 10^3/uL (1.5-8.5); PLATELET COUNT, AUTOMATED 234 10^3/uL (150-450); RED BLOOD COUNT 4.49 10^6/uL (4.30-6.10); WHITE BLOOD COUNT 8.4 10^3/uL (4.0-10.0)
[2019-12-30 10:03] LABS: ALBUMIN 3.3 GM/DL (3.2-5.2); ALT/SGPT 48 U/L (12-78); BILIRUBIN,TOTAL 0.4 MG/DL (0.2-1.0); BLOOD UREA NITROGEN 7 MG/DL (7-18); CARBON DIOXIDE LEVEL 24 MEQ/L (21-32); CHLORIDE LEVEL 109 MEQ/L (98-107); CREATININE FOR GFR 0.71 MG/DL (0.70-1.30); GLOMERULAR FILTRATION RATE > 60.0 (>60); GLUCOSE, FASTING 105 MG/DL (70-100); POTASSIUM SERUM 3.9 MEQ/L (3.5-5.1); SODIUM LEVEL 140 MEQ/L (136-145)
[2019-12-30 16:41] LABS: ALBUMIN 2.8 GM/DL (3.2-5.2); ALT/SGPT 41 U/L (12-78); BILIRUBIN,TOTAL 0.4 MG/DL (0.2-1.0); BLOOD UREA NITROGEN 8 MG/DL (7-18); CALCIUM LEVEL 8.2 MG/DL (8.5-10.1); CARBON DIOXIDE LEVEL 30 MEQ/L (21-32); CHLORIDE LEVEL 105 MEQ/L (98-107); GLOMERULAR FILTRATION RATE > 60.0 (>60); GLUCOSE, FASTING 88 MG/DL (70-100); POTASSIUM SERUM 4.5 MEQ/L (3.5-5.1); SODIUM LEVEL 139 MEQ/L (136-145); TOTAL PROTEIN 6.5 GM/DL (6.4-8.2)
[2020-01-03 14:08] LABS: ALBUMIN 3.5 GM/DL (3.2-5.2); ALT/SGPT 49 U/L (12-78); BILIRUBIN,DIRECT 0.2 MG/DL (0.0-0.2); BILIRUBIN,TOTAL 0.9 MG/DL (0.2-1.0); BLOOD UREA NITROGEN 10 MG/DL (7-18); C REACTIVE PROTEIN QUANTITATIV 8.41 MG/DL (0.00-0.30); CALCIUM LEVEL 8.5 MG/DL (8.5-10.1); CARBON DIOXIDE LEVEL 33 MEQ/L (21-32); CHLORIDE LEVEL 99 MEQ/L (98-107); CREATININE FOR GFR 0.86 MG/DL (0.70-1.30); GLOMERULAR FILTRATION RATE > 60.0 (>60); GLUCOSE, FASTING 111 MG/DL (70-100); POTASSIUM SERUM 3.7 MEQ/L (3.5-5.1); SODIUM LEVEL 133 MEQ/L (136-145); TOTAL PROTEIN 7.8 GM/DL (6.4-8.2)
== END 2019-10-11 23:55 | disposition left against medical advice (07) | DRG 383 ==
LOC: M ED 06:43 → M MS5PR 11:30
PROVIDERS: ADMIT Internal Medicine; ATTEND Internal Medicine
DX: L03.115 Cellulitis of right lower limb (principal); F17.200 Nicotine dependence, unspecified, uncomplicated; F11.90 Opioid use, unspecified, uncomplicated

== ENCOUNTER 2019-10-14 15:24 | Emergency (ER) | payer SELFPAY ==
[2019-10-14] MEDS ORDERED: BACTRIM 160MG/800MG DS TAB As Ordered ONE (15:30)
[2019-10-14] MEDS ORDERED: BACTRIM 160MG/800MG DS TAB ONE (15:30)
[2019-11-13 20:15] LABS: BASO # 0.1 10^3/uL (0.0-0.2); BASO % 0.9 % (0.0-1.0); EOS # 0.1 10^3/uL (0.0-0.5); EOS % 1.7 % (0.0-3.0); HEMATOCRIT 43.4 % (42.0-52.0); HEMOGLOBIN 14.4 g/dl (13.5-17.5); LYMPH # 2.6 10^3/uL (1.5-5.0); LYMPH % 39.8 % (24.0-44.0); MEAN CORPUSCULAR HGB CONC 33.2 g/dl (32.0-36.5); MEAN CORPUSCULAR VOLUME 87.3 fl (80.0-96.0); MONO # 0.6 10^3/uL (0.0-0.8); MONO % 8.3 % (0.0-5.0); NEUTROPHILS # 3.3 10^3/uL (1.5-8.5); NEUTROPHILS % 49.1 % (36.0-66.0); PLATELET COUNT, AUTOMATED 291 10^3/uL (150-450); RED BLOOD COUNT 4.97 10^6/uL (4.30-6.10); WHITE BLOOD COUNT 6.6 10^3/uL (4.0-10.0)
[2019-12-02 13:53] LABS: BLOOD UREA NITROGEN 17 MG/DL (7-18); CALCIUM LEVEL 9.1 MG/DL (8.5-10.1); CARBON DIOXIDE LEVEL 30 mmol/L (20-29); CHLORIDE LEVEL 103 MEQ/L (98-107); CREATININE FOR GFR 0.99 MG/DL (0.70-1.30); GLOMERULAR FILTRATION RATE > 60.0 (>60); GLUCOSE, FASTING 97 MG/DL (70-100); POTASSIUM SERUM 3.8 MEQ/L (3.5-5.1); SODIUM LEVEL 138 MEQ/L (136-145)
== END 2019-10-14 15:48 | disposition left against medical advice (07) ==
LOC: M ED 15:24
DX: L03.116 Cellulitis of left lower limb (principal); Z53.8 Procedure and treatment not carried out for other reasons; Z88.0 Allergy status to penicillin

== ENCOUNTER → 2019-12-28 | Outpatient (REF) | payer SELFPAY | LOC: M LAB REF 18:14 | PROVIDERS: ATTEND Physician Assistant Medical | DX: Z11.3 Encounter for screening for infections with a predominantly sexual mode of transmission (principal) ==